=== PATIENT | female | born 2000 | race Caucasian/White ===

== ENCOUNTER 2023-06-25 10:46 | Outpatient (CLI) | payer OTHER, SELFPAY | END 2023-06-25 10:47 | disposition home or self-care (01) | PROVIDERS: PCP Family Medicine; Visit Provider Family Medicine | DX: R53.83 Other fatigue (principal); F32.A Depression, unspecified; F41.9 Anxiety disorder, unspecified | CPT/HCPCS: 80048; 84443 ==

== ENCOUNTER 2023-09-15 10:58 | Outpatient (CLI) | payer OTHER, SELFPAY ==
[2023-09-15 17:00] LABS: Chlamydia DNA Amplified* NOT DETECTED (No Detected); GC DNA Amplified* NOT DETECTED (No Detected)
== END 2023-09-15 10:59 | disposition home or self-care (01) ==
PROVIDERS: PCP Family Medicine; Visit Provider Registered Nurse
DX: Z11.3 Encounter for screening for infections with a predominantly sexual mode of transmission (principal)
CPT/HCPCS: 87491; 87591

== ENCOUNTER 2024-09-05 14:12 | Outpatient (CLI) | payer OTHER, SELFPAY | END 2024-09-05 14:13 | disposition home or self-care (01) | LOC: NFLDREF 09-06 12:04 | PROVIDERS: PCP Family Medicine; Referring Provider Family Medicine; Visit Provider Family Medicine | DX: N39.0 Urinary tract infection, site not specified (principal) | CPT/HCPCS: 87086 ==

== ENCOUNTER 2025-10-08 07:12 | Outpatient (CLI) | payer OTHER, SELFPAY ==
--- NOTE | 2025-10-08 07:15 | CRLHL7_ITS ---
For Patients: As a result of the Century Cures Act, medical imaging exams and procedure reports are released immediately into your electronic medical record. You may view this report before your referring provider. If you have questions, please contact your health care provider. OBSTETRICAL ULTRASOUND TRANSVAGINAL CLINICAL INDICATION: Dating and viability. LMP: 07/18/2025 CHIKIS by LMP: 04/24/2026 Gestational age: 11 weeks 5 days TECHNIQUE: Real-time singh-scale imaging of the fetus was performed transvaginal. Transvaginal imaging was performed for better visualization of the endometrium and ovaries. FINDINGS: CRL: 0.6 cm, 6 weeks 2 days; CHIKIS 06/01/2026 heart rate: 108 BPM Gestational sac: 2.1 cm, appears within normal limits Yolk sac: 2.7 mm, appears within normal limits Right ovary: Within normal limits; 3.5 x 2 x 2.5 cm, CL Left ovary: Within normal limits; 3.1 x 1.5 x 2.2 cm IMPRESSION: 1. Single living intrauterine measures 6 weeks 2 days with sonographic due date of 06/01/2026. 2. heart rate is 108 beats per minute. 3. Corpus luteal cyst of right ovary measures 2.0 cm. NEHEMIAS CM M.D. Diagnostic Radiologist [email or web address] Transcribed: 10:[address]/Dictated by: Nehemias Cm MD @ 10/08/2025 8:26:00 AM (Electronically Signed)
== END 2025-10-08 07:13 | disposition home or self-care (01) ==
PROVIDERS: PCP Family Medicine; Visit Provider Physician Assistant
DX: O34.81 Maternal care for other abnormalities of pelvic organs, first trimester (principal); N83.11 Corpus luteum cyst of right ovary; Z3A.01 Less than 8 weeks gestation of pregnancy
CPT/HCPCS: 76817

== ENCOUNTER 2025-10-08 10:38 | Outpatient (CLI) | payer OTHER, SELFPAY | END 2025-10-08 10:39 | disposition home or self-care (01) | PROVIDERS: PCP Family Medicine; Visit Provider Advanced Practice Midwife | DX: Z34.91 Encounter for supervision of normal pregnancy, unspecified, first trimester (principal) | CPT/HCPCS: 83020; 83021; 85660; 86592; 86703; 86704; 86706; 86762; 86787; 86803; 86850; 86900; 86901; 87086; 87340 ==

== ENCOUNTER 2025-11-07 14:22 | Outpatient (CLI) | payer OTHER, SELFPAY | END 2025-11-07 14:23 | disposition home or self-care (01) | LOC: NFLDREF 11-14 02:39 | PROVIDERS: PCP Family Medicine; Referring Provider Family Medicine; Visit Provider Advanced Practice Midwife | DX: Z34.01 Encounter for supervision of normal first pregnancy, first trimester (principal) | CPT/HCPCS: 87491; 87591 ==